=== PATIENT | female | born 2000 | race Caucasian/White ===

== ENCOUNTER 2019-01-22 00:17 | Emergency (ER) | payer BC, OTHER ==
[~2019-01-22] VITALS: Ht 172.7 cm; Wt 59.0 kg
[2019-01-22] MEDS ORDERED: FAMOTIDINE 20 MG (PEPCID) TABLET PO STA (01:40)
[2019-01-22] MEDS ORDERED: predniSONE 20 MG TAB PO ONE (01:45)
--- NOTE | 2019-01-22 01:48 | ED General ---
General Chief Complaint: Allergic Reaction Stated Complaint: HIVES EVERYWHERE Nursing Triage Note: PT ARRIVES WITH C/O RASH ONSET 2 DAYS AGO. RASH IS GENERALIZED THROUGHOUT. PT STATES IT ITCHES. PT DENIES SOA OR CHEST PAIN. PT STATES TAKING BENADRYL AT 1300 AND NASREEN AT 2300. PT DENIES ANY NEW ENVIRONMENTAL OR DIET EXPOSURES. Nursing Sepsis Screen: No Definite Risk Source of Information: Patient Exam Limitations: No Limitations History of Present Illness Date Seen by Provider: Jan 22, 2019 Time Seen by Provider: 01:34 Initial Comments Here with report of hives throughout upper extremities, torso and upper part of the legs. Never had anything like this before. Onset Tuesday night after going to the [facility]. Did not eat anything unusual and does not believe she contacted anything new or different. She denies any new lotions, soaps or creams. She is not currently on any medications. She took an Nasreen yesterday as well as Benadryl and used some hydrocortisone cream. The hives are continuing. Denies respiratory distress or abdominal problems. Vidalia a little tight in her chest yesterday briefly but that resolved. She has not had return of that. Denies lesions intraorally or on mucous membranes. Timing/Duration: 1-2 Days Severity: Moderate Associated Systoms: No Fever/Chills, No Nausea/Vomiting, No Shortness of Air Allergies and Home Medications Allergies Coded Allergies: No Known Drug Allergies (Unverified , 01/22/19) Patient Home Medication List Home Medication List Reviewed: Yes Review of Systems Review of Systems Constitutional: see HPI; No chills, No fever Respiratory: no symptoms reported Cardiovascular: no symptoms reported Gastrointestinal: no symptoms reported Skin: see HPI, change in color, pruritus, rash Past Yxsetnn-Jigqpk-Pxvisa Hx Past Med/Social Hx: Reviewed Nursing Past Med/Soc Hx Patient Social History Alcohol Use: Denies Use Recreational Drug Use: No Smoking Status: Never a Smoker Recent Foreign Travel: No Contact w/Someone Who Travel: No Recent Infectious Disease Expo: No Recent Hopitalizations: No Physical Abuse: No Sexual Abuse: No Mistreated: No Fear: No Past Medical History Surgeries: No Respiratory: No Cardiac: No Family Medical History Reviewed Nursing Family Hx Physical Exam Vital Signs Vital Signs - First Documented 01/22/19 00:29 Temp 97.1 Pulse 90 Resp 18 B/P (MAP) 143/95 (111) Pulse Ox 100 O2 Delivery Room Air Capillary Refill : Less Than 3 Seconds Height, Weight, BMI Height: 5'8.00" Weight: 130lbs. oz. 58.036898ib; BMI Method:Stated General Appearance: No Apparent Distress, WD/WN HEENT: PERRL/EOMI, Pharynx Normal Neck: Non Tender, Supple Respiratory: Lungs Clear, Normal Breath Sounds Cardiovascular: Regular Rate, Rhythm, No Murmur Skin: Warm/Dry, Other (hives noted to bilateral arms including hands, anterior and posterior torso. Reports upper part of the legs as well. No lesions noted on the face or distal lower extremities.) Progress/Results/Core Measures Suspected Sepsis Recent Fever Within 48 Hours: No Infection Criteria Present: None New/Unexplained Altered Menta: No Sepsis Screen: No Definite Risk SIRS Temperature:97.1 Pulse: 90 Respiratory Rate: 18 Blood Pressure 143 /95 Mean: 111 Results/Orders My Orders Orders - JANAE MCKENNA MD Prednisone Tablet (Deltasone Tablet) (01/22/19 01:45) Pepcid Po (01/22/19 01:40) Vital Signs/I&O 01/22/19 00:29 Temp 97.1 Pulse 90 Resp 18 B/P (MAP) 143/95 (111) Pulse Ox 100 O2 Delivery Room Air Capillary Refill : Less Than 3 Seconds Blood Pressure Mean: 111 Progress Note : Progress Note Seen and evaluated. Prednisone 40 mg by mouth. Famotidine 20 mg by mouth. Discharged home with return precautions. Patient verbalize understanding of instructions and agreement with plan. Departure Impression Primary Impression: Urticaria, idiopathic Disposition: HOME, SELF-CARE Condition: Stable Departure-Patient Inst. Decision time for Depature: 01:46 Referrals: NO,LOCAL PHYSICIAN (PCP) Primary Care Physician Patient Instructions: Hives (DC) Add. Discharge Instructions: All discharge instructions reviewed with patient and/or family. Voiced understanding. You may take Pepcid or the generic famotidine 20 mg daily for the next 5 days and then as needed. You may take Benadryl/diphenhydramine 25 mg every 6 hours as needed for itching. Continue your Nasreen daily. Take other medications as directed. Return for markedly increase hives, breathing problems, swelling in your throat or of your time, significant abdominal pain or vomiting or other concerns as needed. Follow-up with your doctor for recheck and further evaluation is needed and certainly if you get this again and you should follow- up for potential allergy testing. Scripts Prednisone (Prednisone) 20 Mg Tab 40 MG PO DAILY, #10 TAB 0 Refills Prov: JANAE MCKENNA MD 01/22/19 JANAE MCKENNA MD Jan 22, 2019 01:48
[2019-01-22] MEDS ORDERED: PRD20T PO (01:49)
[2019-01-22 01:58] VITALS: BP 108/82
== END 2019-01-22 02:00 | disposition home or self-care (01) ==
LOC: ER 00:19
DX: L50.1 Idiopathic urticaria (principal)
CPT/HCPCS: 99283